=== PATIENT | male | born 1970 | race Caucasian/White ===

== ENCOUNTER 2022-03-31 22:09 | Inpatient (IN) | payer OTHER ==
[~2022-03-31] VITALS: Ht 177.8 cm; Wt 80.7 kg
[2022-04-01] VITALS (8 sets, daily range): BP systolic 129–168; BP diastolic 91–109
[2022-04-01] MEDS ORDERED: ONDANSETRON HCL INJ 2MG/ML 2ML 2 MG/ML VIAL IV PRN (00:15)
[2022-04-01] MEDS ORDERED: ACETAMINOPHEN 325 MG TAB PO PRN (00:15)
[2022-04-01] MEDS ORDERED: Morphine 2mg Syringe 2 MG/ML SYR IV PRN (00:15)
[2022-04-01] MEDS ORDERED: METOPROLOL TARTRATE 50 MG TAB PO SCH (00:36)
[2022-04-01 05:59] LABS: BASOPHILS % 0.2 % (0.0-1.0); HEMATOCRIT 48.1 % (38.2-49.6); HEMOGLOBIN 16.9 g/dL (14.0-18.0); LYMPHOCYTES # (AUTO) 0.8 (1.0-3.2); LYMPHOCYTES % 6.1 % (18.0-39.1); MEAN CORPUSCULAR HEMOGLOBIN 33.5 pg (28-32); MEAN CORPUSCULAR HGB CONC 35.1 g/dL (31-35); MEAN CORPUSCULAR VOLUME 95.2 fL (81-99); MONOCYTES # (AUTO) 0.4 (0.2-0.8); MONOCYTES % 3.3 % (4.4-11.3); NEUTROPHILS # (AUTO) 11.9 (2.1-6.9); NEUTROPHILS % 89.8 % (38.7-80.0); PLATELET COUNT 125 x10e3/uL (140-360); RED BLOOD COUNT 5.05 x10e6/uL (4.3-5.7); RED CELL DISTRIBUTION WIDTH 13.6 % (11.7-14.4)
[2022-04-01 06:23] LABS: ALBUMIN 2.7 g/dL (3.5-5.0); ALBUMIN/GLOBULIN RATIO 0.9 (0.8-2.0); ANION GAP 16.3 mmol/L (8-16); CALCIUM 8.1 mg/dL (8.4-10.2); CREATININE, SERUM 0.71 mg/dL (0.72-1.25); POTASSIUM 3.3 mmol/L (3.5-5.1)
[2022-04-01] MEDS ORDERED: PANTOPRAZOLE SOD 40 MG TABEC PO SCH (09:00)
[2022-04-01] MEDS ORDERED: HYDRALAZINE HCL 20 MG/ML VIAL IV PRN (09:15)
[2022-04-01] MEDS: METOPROLOL TARTRATE 50 MG TAB PO SCH ×2 (09:50→21:00)
[2022-04-01] MEDS ORDERED: CITRATE OF MAGNESIA 300ML BOTTLE PO ONE ×2 (10:00→17:00)
[2022-04-01] MEDS ORDERED: PEG (High)/E-LYTE SOLN 4,000 ML BTL PO ONE ×3 (11:30→20:15)
[2022-04-01] MEDS: KCL 40MEQ/0.9% SOD CHL 1,000 ML IV SCH ×2 (12:32→20:00)
[2022-04-01] MEDS: DICYCLOMINE HCL 10 MG CAP PO SCH ×3 (13:04→23:57)
[2022-04-01] MEDS ORDERED: METRONIDAZOLE 500MG/NS 100ML 100 ML IV SCH (16:00)
[2022-04-01] MEDS ORDERED: SYNTHROID100 MCG PO (18:33)
[2022-04-01 19:27] LABS: % IRON SATURATION 40 % (15-50); AMYLASE 84 U/L (25-125); BILIRUBIN,DIRECT 5.7 mg/dL (0.0-0.5); CHOL/HDL RATIO 19.4 (3.9-4.7); CHOLESTEROL 136 MD/DL (0-199); HDL CHOLESTEROL 7 MG/DL (40-60); IRON 71 ug/dL (65-175); LIPASE 252 U/L (8-78); TOTAL IRON BINDING CAPACITY 179 ug/dL (261-478); TRANSFERRIN 128 mg/dL (174-364); TRIGLYCERIDES 505 MG/DL (0-149)
[2022-04-01 19:48] LABS: THYROID STIMULATING HORMONE 0.461 uIU/mL (0.350-4.940)
[2022-04-01 19:59] LABS: FERRITIN > 2000.00 ng/mL (21.81-274.66)
[2022-04-01 22:23] LABS: HIV 1&2 AB SCREEN NON-REACTIVE (NONREACTIVE)
[2022-04-02 00:02] VITALS: BP 107/81
[2022-04-02] MEDS: KCL 40MEQ/0.9% SOD CHL 1,000 ML IV SCH (04:49)
[2022-04-02] MEDS: DICYCLOMINE HCL 10 MG CAP PO SCH (04:49)
[2022-04-02] MEDS ORDERED: CHLORDIAZEPOXIDE HCL 25 MG CAP PO SCH ×2 (05:01→06:00)
[2022-04-03 18:03] LABS: ALPHA-1-ANTITRYPSIN 213 mg/dL (101-187)
[2022-04-09 13:29] LABS: ENDOMYSIAL ANTIBODIES, IGA Negative (Negative)
[2022-04-12] MEDS ORDERED: PROTONIX20 MG PO (09:57)
[2022-04-12] MEDS ORDERED: FOLIC ACID0.4 MG PO (09:57)
[2022-04-12] MEDS ORDERED: METOPROLOL SUCC50 MG PO (09:57)
[2022-04-12] MEDS ORDERED: AMLODIPINE BESYL5 MG PO (09:57)
[2022-04-12] MEDS ORDERED: MULTIVITAMINS1 EAC8 (09:57)
[2022-04-12] MEDS ORDERED: DICYCLOMINE HCL20 MG PO (09:57)
[2022-04-12] MEDS ORDERED: CLONAZEPAM0.5 MG PO (09:58)
== END 2022-04-02 06:15 | disposition left against medical advice (07) | DRG 872 ==
LOC: MED/SURG2 22:09
PROVIDERS: ADMIT Family Medicine; ATTEND Family Medicine
DX: A41.9 Sepsis, unspecified organism (principal); R19.00 Intra-abdominal and pelvic swelling, mass and lump, unspecified site; I10 Essential (primary) hypertension; E03.9 Hypothyroidism, unspecified; Z72.0 Tobacco use; E78.5 Hyperlipidemia, unspecified; F10.10 Alcohol abuse, uncomplicated; R10.13 Epigastric pain; K21.00 Gastro-esophageal reflux disease with esophagitis, without bleeding; Z80.0 Family history of malignant neoplasm of digestive organs; Z88.8 Allergy status to other drugs, medicaments and biological substances
CPT/HCPCS: 36415; 80053; 80061; 82103; 82105; 82150; 82248; 82390; 82728; 82784; 83516; 83540; 83605; 83690; 84155; 84443; 84466; 85025; 85651; 86039; 86255; 86256; 87390; G0433; G0435; J2270; J2405; J2543

== ENCOUNTER → 2022-04-16 | Day surgery (SDC) | payer OTHER ==
[~2022-04-16] MED LIST: AMLODIPINE BESYL5 MG PO; CLONAZEPAM0.5 MG PO; DICYCLOMINE HCL20 MG PO; FENTANYL CITRATE/PF 100MCG/2 ML INJ ONE; FOLIC ACID0.4 MG PO; METOPROLOL SUCC50 MG PO; MIDAZOLAM HCL 2 MG/2 ML VIAL ONE; MULTIVITAMINS1 EAC8; PROTONIX20 MG PO; SYNTHROID100 MCG PO
[2022-04-16 11:50] VITALS: BP 128/80
== END | disposition home or self-care (01) ==
LOC: OR 08:00
PROVIDERS: ATTEND Internal Medicine Gastroenterology
DX: Z12.11 Encounter for screening for malignant neoplasm of colon (principal); D12.2 Benign neoplasm of ascending colon; D12.3 Benign neoplasm of transverse colon; D12.8 Benign neoplasm of rectum; K29.70 Gastritis, unspecified, without bleeding; K29.80 Duodenitis without bleeding; K57.30 Diverticulosis of large intestine without perforation or abscess without bleeding; K21.9 Gastro-esophageal reflux disease without esophagitis; K44.9 Diaphragmatic hernia without obstruction or gangrene; L98.8 Other specified disorders of the skin and subcutaneous tissue; K64.8 Other hemorrhoids; I10 Essential (primary) hypertension; E03.9 Hypothyroidism, unspecified; F41.9 Anxiety disorder, unspecified; F17.210 Nicotine dependence, cigarettes, uncomplicated; Z88.8 Allergy status to other drugs, medicaments and biological substances; Z01.810 Encounter for preprocedural cardiovascular examination; Z20.822 Contact with and (suspected) exposure to COVID-19; Z79.899 Other long term (current) drug therapy; Z80.0 Family history of malignant neoplasm of digestive organs
CPT/HCPCS: 43239; 45384; 93005; J2250; J3010; U0002